=== PATIENT | female | born 1980 ===

== ENCOUNTER 2024-06-02 10:45 | Outpatient (RCR) | payer SELFPAY ==
--- NOTE | 2024-04-07 09:57 | PTOPEVAL1 ---
Assessment and note entered by Kimberli Hernandez DPT Evaluation Information Assessment Status Evaluation ICD-10 Condition Codes (PT) Weakness R53.1,Urge incontinence N39.41,Mixed incontinence N39.46,Stress incontinence N39.3 Subjective Information Pt reports 5 live vaginal births and 2 miscarriages, 2 episiotomies. Is noticing some issues holding her urine over the past few years. Will get incontinence with heavy lifting, coughing , running. Incontinence will occur most days of the week and wears pads often. Volume is enough to change clothes sometimes. Also reports urinary urgency/frequency. Urinating 5 times or more a day and up to 2 at night. Can hold urge to void a few minutes. Denies pain with urination. BM 1-2 times a day, typically no pain unless constipated which depends on diet. History of intermittent pain with intercourse. No other [employer] or b/b history. Patient goal: get rid of the incontinence Returns to MD end of April. Reported Pain Level Pain Score 0: Self Report Assessment PT Clinical Summary The patient is presenting to skilled therapy with a several year history of worsening mixed urinary incontinence. She presents with decreased pelvic floor strength and endurance, decreased abdominal strength and a small diastasis recti. These impairments are contributing to her incontinence and urgency. She will highly benefit from therapy to address her impairments in order to reduce incontinence and urgency. Plan of Care Interventions Manual Therapy,Neuro Re-education,Patient/ Caregiver Education,Therapeutic Activities, Therapeutic Exercise PT Services Indicated Yes Treatment Frequency and 1 time a week for 5 visits Duration These treatments will address the objective and functional deficits as defined above. The patient will be advanced safely and appropriately in order for the patient to progress towards his/her prior level of function. Additional exercises will be introduced and as well as a comprehensive home exercise program upon discharge, if needed, ?to ensure carryover of functional gains achieved in the clinic. This treatment plan has been reviewed and agreement upon by the patient.
--- NOTE | 2024-05-26 12:51 | PCPTNOTE ---
Patient called to cancel appointment 05/26/24 due to her son having a car accident.
--- NOTE | 2024-06-02 11:10 | OPREHPOC ---
Outpatient Therapy Plan of Care This is a Multidisciplinary Plan of Care that may contain components documented by all disciplines (PT, OT, and ST.) PT Problem 1 PT Problem #1 Knowledge Deficit PT Goal 1 Goal / Goal Update 1. Patient will perform independent HEP 2. Patient will verbalize urge suppression strategies Target Visit 3 Progress Met PT Problem 2 PT Problem #2 Impaired Strength PT Goal 1 Goal / Goal Update 1. Pelvic floor strength 4/5 to reduce incontinence 2. Pelvic floor endurance to 10 seconds to reduce incontinence update 06/02/24 not assessed per request Target Visit 5 PT Problem 3 PT Problem #3 Impaired Functional ADLs PT Goal 1 Goal / Goal Update 1. Patient will report incontinence no more than 1 time in a 2 week period 2. Patient will be able to hold urge at least 30 minutes before voiding Target Visit 5 Progress Partially Met
--- NOTE | 2024-06-02 11:10 | PTOPDC ---
Assessment and note entered by Kimberli Hernandez DPT Evaluation Information Assessment Status Discharge ICD-10 Condition Codes (PT) Weakness R53.1,Urge incontinence N39.41,Mixed incontinence N39.46,Stress incontinence N39.3 Subjective Information Pt reports improvements with therapy, feels like she can hold urge to void longer. Can hold urge to void 5 minutes and feels less urgency. Urinary incontinence once a day over the last week due to a residual cough from being sick. Feels if she didn't have the cough she would be ok. Reported Pain Level Pain Score 0: Self Report Assessment PT Clinical Summary The patient has made good progress in therapy and reports decreased frequency of incontinence and improved ability to hold urinary urge. She demonstrates improved hip and abdominal strength. Due to her progress and independence with HEP, plan for discharge at this time. She has been educated to continue HEP and to follow up with MD and/or PT as needed. Plan of Care PT Services Indicated No
== END 2024-06-02 12:48 | disposition home or self-care (01) ==
LOC: ANHPT 10:45
DX: M62.9 Disorder of muscle, unspecified (principal); R53.1 Weakness; N39.46 Mixed incontinence
CPT/HCPCS: 97112; 97161; 97530